=== PATIENT | male | born 1985 | race Caucasian/White ===

== ENCOUNTER 2019-02-28 11:28 | Emergency (ER) | payer SELFPAY ==
[2019-02-28 11:58] VITALS: BP 119/65
--- NOTE | 2019-02-28 12:23 | UC ---
Upper Extremity HPI - HPI Summary HPI Summary: 34-year-old male comes in with a chief complaint of right wrist weakness and numbness. He woke up with it this morning. No known specific trauma. He denies any different activities yesterday. Does not know that he slept in an odd way overnight. This is not happened to him in the past. Patient has numbness primarily over the thumb index and middle fingers. He has weakness with attempts at extension of the fingers and the wrist. Also has some difficulty with supination. Does have some pain in the right elbow lateral and medial aspects. No decreased sensation over the fifth finger. Denies any neck or shoulder pain. - History of Current Complaint Chief Complaint: UCUpperExtremity Stated Complaint: CAN NOT MOVE WRIST Time Seen by Provider: 02/28/19 11:56 Pain Intensity: 0 - Allergies/Home Medications Allergies/Adverse Reactions: Allergies Allergy/AdvReac Type Severity Reaction Status Date / Time bacitracin Allergy Swelling Verified 02/28/19 12:01 [From Neosporin ([id number])] codeine Allergy Vomiting Verified 02/28/19 12:01 neomycin Allergy Swelling Verified 02/28/19 12:01 [From Neosporin ([id number])] Penicillins Allergy Swelling Verified 02/28/19 12:01 polymyxin B Allergy Swelling Verified 02/28/19 12:01 [From Neosporin ([id number])] Sulfa (Sulfonamide Allergy Anaphylatic Verified 02/28/19 12:01 Antibiotics) Shock sulfate Allergy Unknown Uncoded 02/28/19 12:01 Reaction Details Home Medications: Home Medications Ibuprofen TAB* [Advil TAB*] 800 mg PO Q6H PRN 02/28/19 [History Confirmed ] PMH/Surg Hx/FS Hx/Imm Hx Previously Healthy: Yes - Surgical History Surgical History: None - Family History Known Family History: Positive: Non-Contributory - Social History Alcohol Use: Occasionally Substance Use Type: None Smoking Status (MU): Heavy Every Day Tobacco Smoker Type: Cigarettes Amount Used/How Often: 1 PPD Household Exposure Type: Cigarettes Review of Systems All Other Systems Reviewed And Are Negative: Yes Constitutional: Positive: Negative Skin: Positive: Negative Eyes: Positive: Negative ENT: Positive: Negative Respiratory: Positive: Negative Cardiovascular: Positive: Negative Gastrointestinal: Positive: Negative Motor: Positive: Decreased ROM, Weakness Neurovascular: Positive: Decreased Sensation Musculoskeletal: Positive: Other: - SEE HPI Neurological: Positive: Weakness, Paresthesia, Numbness Psychological: Positive: Negative Is Patient Immunocompromised?: No Physical Exam Triage Information Reviewed: Yes Appearance: Well-Appearing, No Pain Distress, Well-Nourished Vital Signs: Initial Vital Signs Temp 98.1 F 02/28/19 11:52 Pulse 86 02/28/19 11:52 Resp 16 02/28/19 11:52 BP 119/65 02/28/19 11:52 Pulse Ox 97 02/28/19 11:52 Vital Signs Reviewed: Yes Eye Exam: Normal Eyes: Positive: Conjunctiva Clear Neck: Positive: Supple, Nontender Respiratory: Positive: No respiratory distress Cardiovascular: Positive: RRR Musculoskeletal: Positive: Other: - Patient is unable to extend the right wrist or right fingers. His strength with blueprint tracer is also decreased. Reports decreased sensation over the thumb index and middle fingers. Reports normal sensation over the fifth finger. He has some difficulty with supination of the right arm. No obvious swelling in the hand or wrist and forearm or elbow. Shoulders full range of motion in the neck has full range of motion and is nontender to palpation. Normal radial pulse normal capillary refill. Neurological: Positive: Alert Psychological: Positive: Age Appropriate Behavior Skin Exam: Normal Upper Extremity Course/Dx - Course Course Of Treatment: Clinically patient has a right radial nerve palsy. He does have some pain in the elbow. No specific trauma noted. Normal vascular exam. Patient was placed in a cock-up splint by nursing here in clinic patient neurovascularly no change after placement. Patient will take ibuprofen and ice the elbow if helpful and follow-up with orthopedics. Patient's to get reevaluated sooner if worse. - Differential Dx/Diagnosis Provider Diagnosis: Right radial nerve palsy Discharge ED - Sign-Out/Discharge Documenting (check all that apply): Patient Departure All imaging exams completed and their final reports reviewed: No Studies - Discharge Plan Condition: Stable Disposition: HOME Patient Education Materials: Radial Nerve Palsy (ED) Referrals: Eric Spencer MD [Medical Doctor] - Additional Instructions: FOLLOW UP WITH ORTHOPEDICS. Take ibuprofen 600 mg every 6 hours as needed. Ice the area of pain in the elbow if helpful. GET REEVALUATED SOONER IF NOT IMPROVED OR WORSE; SPREAD OR PERSISTENCE OF WEAKNESS/NUMBNESS OR ANY QUESTIONS OR CONCERNS. - Billing Disposition and Condition Condition: STABLE Disposition: Home
== END 2019-02-28 12:40 | disposition home or self-care (01) ==
LOC: UCEAST 11:28
DX: G56.31 Lesion of radial nerve, right upper limb (principal); F17.210 Nicotine dependence, cigarettes, uncomplicated; Z88.0 Allergy status to penicillin; Z88.1 Allergy status to other antibiotic agents; Z88.8 Allergy status to other drugs, medicaments and biological substances
CPT/HCPCS: 99202; G0463